=== PATIENT | male | born 1995 | race Caucasian/White ===

== ENCOUNTER 2023-03-15 20:07 | Emergency (ER) | payer MEDICAID ==
[~2023-03-15] VITALS: Ht 160 cm; Wt 82.7 kg
[~2023-03-15 20:07] MED LIST: CHLO1LIQ2 PO
[2023-03-15 20:09] VITALS: BP 120/72; PULSE 90; RESP 16; TEMP 97.3; O2SAT 98
== END 2023-03-15 21:49 | disposition home or self-care (01) ==
LOC: ER 20:07
DX: S93.402A Sprain of unspecified ligament of left ankle, initial encounter (principal); X50.1XXA Overexertion from prolonged static or awkward postures, initial encounter; Y93.89 Activity, other specified; Y92.89 Other specified places as the place of occurrence of the external cause; Y99.8 Other external cause status
CPT/HCPCS: 29515; 73610; 99283; L1930